=== PATIENT | male | born 1950 | race Caucasian/White ===

== ENCOUNTER 2024-07-05 04:32 | Emergency (ER) | payer OTHER | END 2024-07-05 05:04 | LOC: NAV ERS 04:32 → EEVIPCON 04:32 → NAV ERS 05:04 | DX: R42 Dizziness and giddiness (principal); S00.03XA Contusion of scalp, initial encounter; S50.01XA Contusion of right elbow, initial encounter; S70.02XA Contusion of left hip, initial encounter; S00.81XA Abrasion of other part of head, initial encounter; R29.700 NIHSS score 0; W18.30XA Fall on same level, unspecified, initial encounter; Y93.89 Activity, other specified; Y92.149 Unspecified place in prison as the place of occurrence of the external cause | CPT/HCPCS: 93005; 99284 ==